=== PATIENT | female | born 1955 | race Caucasian/White ===

== ENCOUNTER → 2019-02-14 | Day surgery (SDC) | payer BC ==
[~2019-02-14] MED LIST: BIOTIN2500 MCG; D3 DOTS2000 UNIT; FENTANYL CITRATE/PF 100MCG/2 ML INJ ONE; LEXAPRO10 MG PO; MIDAZOLAM HCL 2 MG/2 ML VIAL ONE; OR PHACO EYE KIT ONE; PREOP PHACO EYE KIT ONE; ZANTAC150 MG
--- OUTSIDE RECORDS SUMMARY | 2019-02-14 10:32 | XMS REPORT ---
Author Author [facility] Address Unknown Phone Unavailable Care Team Providers Care [place] Name Role Phone OCTAVIO ZAMBRANO Unavailable Unavailable Problems This patient has no known problems. Allergies, Adverse Reactions, Alerts This patient has no known allergies or adverse reactions. Medications This patient has no known medications. Results Test Description Test Time Test Comments Text Results Atomic Results Result Comments MM, DIGITAL, MAMMO, SCREENING, BILATERAL INCLUDING CAD 2019-02-10 15:08:00 Diagnostic workup per radiologist?->YesReason for Exam:->screening #[id number] - MM, DIGITAL, MAMMO, SCREENING, BILATERAL INCLUDING CADBILATERAL DIGITAL SCREENING MAMMOGRAM WITH CAD: 02/10/2019Comparison is made to exam dated: 04/08/2016 mammogram - [facility]. There are scattered fibroglandular elements in both breasts that could obscure a lesion on mammography. Current study was also evaluated with a Computer Aided Detection (CAD) system. Benign appearing vascular calcifications are present in the right breast and benign appearing vascular calcifications and benign appearing calcifications are present in the left breast. Examination indicates an intramammary lymph node in both breasts. No significant masses, calcifications, or other findings are seen in either breast. IMPRESSION: BENIGNThere is no mammographic evidence of malignancy. A 1 year screening mammogram is recommended. Demarcus Haley M.D. pth/penrad:02/10/2019 15:08:15 Normal Exam Mammogram BI-RADS: 2 Benign [id number] Electr onically signed by: DEMARCUS HALEY M.D. on 02/10/2019 03:08 PM MR, MRA, BRAIN, WITH 2018-11-07 14:39:00 FINAL REPORT MRA brain with and without contrast 11/07/2018 2:38 PM CLINICAL HISTORY: strong family h/o aneurysm, please evaluate for cerebral aneurysm COMPARISON: None available TECHNIQUE: Three-dimensional [id number] and contrast-enhanced intracranial MRA was performed, from which maximal intensity projection 3-D reconstructions of the intracranial arterial vasculatures were created. FINDINGS: There is no vessel occlusion, stenosis, or aneurysm. IMPRESSION: Unremarkable intracranial MRA. Signed: Virgilio Carter Verified Date/Time: 11/07/2018 14:39:50 Reading Location: [facility] Radiology Reading Room -CREATININE 2018-11-07 14:03:00 POC-CREATININE (JEFF) (test [id number]=[id number]) 0.8 mg/dL 0.6-1.3 TESTED AT [address] [address] POC-EGFR (JEFF) (test wwdp=1879) 72 mL/min/1.73M2 RAD, CHEST, 2 [id number] 14:17:00PA and lateral Reason for Exam:->SOBFINAL REPORT Chest, PA and lateral. History: Shortness of breath. Comparison: None available. Discussion: The cardiomediastinal silhou ette and pulmonary vasculature are within normal limits. The lungs are clear wit hout evidence of consolidation or effusion. There are no acute osseous abnormal ities. The soft tissues are unremarkable. IMPRESSION: No acute cardiopulmonary abnormality. Signed: Gabriele Manneport Verified Date/Time: 06/01/2018 14 :17:50 Reading Location: [facility] Mammo Reading Room
--- OUTSIDE RECORDS SUMMARY | 2019-02-14 10:32 | XMS REPORT | Clinical Summary ---
Author Author BRANDIN [facility] Address Unknown Phone Unavailable Care Team Providers Care Individualized Education Plan Aide Name Role Phone George Mac MD PCP Allergies Comments Active Allergy Reactions Severity Noted Date Feels bad Bupropion Hcl 10/25/2015 Just allegric Tetanus Vaccines And 10/25/2015 Toxoid Medications End Date Status Medication Sig Dispensed Refills Start Date Active aspirin 81 MG EC tablet Take 81 mg by 0 mouth once . Active cholecalciferol, vitamin Take 5,000 0 D3, 5,000 unit Tab Units by mouth daily. Active esomeprazole (NEXIUM) 20 Take by 0 mg packet mouth. Active biotin 1 mg Cap Take by 0 mouth. Active escitalopram oxalate Take 1 tablet 90 tablet 1 (LEXAPRO) 20 MG tablet (20 mg total) 9 by mouth daily. Active busPIRone (BUSPAR) 7.5 MG TAKE 1 270 tablet 0 tablet TABLET(7.5 9 MG) BY MOUTH THREE TIMES DAILY 06/02/2018 Discontinued ESOMEPRAZOLE MAGNESIUM Take 1 0 (NEXIUM ORAL) capsule by mouth daily. 03/25/2018 Discontinued vitamin E 400 UNIT Take 400 0 capsule Units by mouth daily. 03/25/2018 Discontinued vitamin A 41224 UNIT Take 10,000 0 capsule Units by mouth daily. 06/20/2018 Discontinued escitalopram oxalate Take 1 tablet 30 tablet 5 (LEXAPRO) 20 MG tablet (20 mg total) 8 by mouth daily. 03/25/2018 Discontinued busPIRone (BUSPAR) 7.5 MG Take 1 tablet 60 tablet 0 tablet (7.5 mg 8 total) by mouth 3 (three) times daily as needed. 10/21/2018 Discontinued busPIRone (BUSPAR) 7.5 MG TAKE 1 90 tablet 0 tablet TABLET(7.5 8 MG) BY MOUTH THREE TIMES DAILY NEEDED 08/03/2018 Discontinued escitalopram oxalate TAKE 1 30 tablet 2 (LEXAPRO) 20 MG tablet TABLET(20 MG) 8 BY MOUTH DAILY 09/20/2018 Discontinued escitalopram oxalate TAKE 1 30 tablet 0 (LEXAPRO) 20 MG tablet TABLET(20 MG) 8 BY MOUTH DAILY 10/21/2018 Discontinued escitalopram oxalate Take 1 tablet 30 tablet 0 (LEXAPRO) 20 MG tablet (20 mg total) 8 by mouth daily. 01/06/2019 Discontinued busPIRone (BUSPAR) 7.5 MG Take 7.5 mg 0 tablet by mouth 3 (three) times daily. 12/04/2018 nitrofurantoin, Take 1 10 capsule 0 macrocrystal-monohydrate, capsule (100 9 (MACROBID) 100 MG capsule mg total) by mouth 2 (two) times daily for 5 days. 01/06/2019 Discontinued busPIRone (BUSPAR) 7.5 MG Take 1 tablet 30 tablet 2 tablet (7.5 mg 9 total) by mouth 3 (three) times daily. Active Problems No known active problems Encounters Care Team Description Date Type Specialty George Mac MD Screening mammogram, encounter for 02/10/2019 Hospital Encounter George Mac MD Annual physical exam (Primary Dx); Preop examination; Screening mammogram, encounter for; Screen for colon cancer; Screening exam for skin cancer 02/02/2019 Office Visit Internal Medicine George Mac MD Referral 01/23/2019 Telephone Internal Medicine George Mac MD 01/06/2019 Refill Internal Medicine George Mac MD 01/06/2019 Refill Internal Medicine George Mac MD Urinary Tract Infection 11/29/2018 Telephone Internal Medicine George Mac MD Physical after 11/28/2018 Telephone Internal Medicine George Mac MD MRI/MRA 11/15/2018 Telephone Internal Medicine George Mac MD Family history of stroke; Family history of aneurysm 11/07/2018 Hospital Radiology Encounter George Mac MD MRA Order 11/07/2018 Telephone Internal Medicine George Mac MD referral 11/02/2018 Telephone Internal Medicine George Mac MD Family history of stroke (Primary Dx); Anxiety and depression; Transaminitis; Hyperlipidemia, unspecified hyperlipidemia type; Screening mammogram, encounter for; SOB (shortness of breath); Family history of aneurysm 10/21/2018 Office Visit Internal Medicine George Mac MD 09/20/2018 Refill Internal Medicine George Mac MD Medication Refill 09/16/2018 Telephone Internal Medicine George Mac MD Medication Refill 09/05/2018 Telephone Internal Medicine George Mac MD 08/03/2018 Refill Internal Medicine George Mac MD 06/20/2018 Refill Internal Medicine George Mac MD Age-related cataract of both eyes, unspecified age-related cataract type (Primary Dx); Family history of stroke; Spontaneous bruising; Dermoid cyst of scalp; Vaginal cyst 06/02/2018 Office Visit Internal Medicine George Mac MD SOB (shortness of breath) 06/01/2018 Hospital Radiology Encounter George Mac MD Medication Refill 04/07/2018 Telephone Internal Medicine George Mac MD Anxiety (Primary Dx); SOB (shortness of breath); Heart palpitations 03/25/2018 Office Visit Internal Medicine George Mac MD 03/25/2018 Refill Internal Medicine George Mac MD Referrals needed 03/22/2018 Telephone Internal Medicine after 02/13/2018 Immunizations Name Dates Previously Given Next Due DTaP 04/21/2013 SHINGLES VARICELLA 02/05/2015 (ZOSTAVAX) ZOSTER Family History Medical History Relation Name Comments Cancer Brother lung, breast Aneurysm Brother brain aneurysm Cancer Father lung Aneurysm Sister brain Other Son MVA, age 21 Drug abuse Son Relation Name Status Comments Brother Brother Father Mother Alive Sister Sister Alive Son Son Alive Son Alive Social History Date Tobacco Use Types Packs/Day Years Used Never Smoker Smokeless Tobacco: Never Used Alcohol Use Drinks/Week oz/Week Comments Yes 1 glass of wine Sex Assigned at Date Recorded Not on file Industry Job Start Date Occupation Not on file Not on file Not on file Travel End Travel History Travel Start No recent travel history available. Last Filed Vital Signs Time Taken Vital Sign Reading 02/02/2019 9:38 AM CDT Blood Pressure 99/60 02/02/2019 9:38 AM CDT Pulse 62 02/02/2019 9:38 AM CDT Temperature 36.8 C (98.3 F) 02/02/2019 9:38 AM CDT Respiratory Rate 10 02/02/2019 9:38 AM CDT Oxygen Saturation 98% - Inhaled Oxygen - Concentration 02/02/2019 9:38 AM CDT Weight 62.5 kg (137 lb 11.2 oz) 02/02/2019 9:38 AM CDT Height 165.1 cm (5' 5") 02/02/2019 9:38 AM CDT Body Mass Index 22.91 Plan of Treatment Care Team Description Date Type Specialty George Mac MD [address] [id number] 08/04/2019 Office Visit Internal Medicine Procedures Comments Procedure Name Priority Date/Time Associated Diagnosis MM DIGITAL MAMMO SCREEN Routine 02/10/2019 Screening mammogram, BILATERAL 1:40 PM CDT encounter for URINE CULTURE, ROUTINE Routine 02/02/2019 10:31 AM CDT MICROSCOPIC EXAMINATION Routine 02/02/2019 10:31 AM CDT UA/M W/RFLX CULTURE, ROUT AP Routine 02/02/2019 Annual physical exam 10:31 AM CDT PT/APTT Routine 02/02/2019 Preop examination 10:31 AM CDT TSH+FREE T4 Routine 02/02/2019 Annual physical exam 10:31 AM CDT VITAMIN D, 25-HYDROXY Routine 02/02/2019 Annual physical exam 10:31 AM CDT LIPID PANEL Routine 02/02/2019 Annual physical exam 10:31 AM CDT HGB A1C WITH EAG ESTIMA Routine 02/02/2019 Annual physical exam 10:31 AM CDT CBC W/PLT COUNT & AUTO Routine 02/02/2019 Annual physical exam DIFFERENTIAL 10:31 AM CDT COMPREHENSIVE METABOLIC Routine 02/02/2019 Annual physical exam PANEL 10:31 AM CDT ECG 12-LEAD Routine 02/02/2019 Preop examination 10:18 AM CDT MR MRA HEAD WITH AND Routine 11/07/2018 Family history of stroke WITHOUT CONTRAST 2:20 PM HULL INSPECTOR Family history of aneurysm POCT-CREATININE Routine 11/07/2018 1:58 PM HULL INSPECTOR LIPID PANEL Routine 10/21/2018 Hyperlipidemia, 10:41 AM HULL INSPECTOR unspecified hyperlipidemia type COMPREHENSIVE METABOLIC Routine 10/21/2018 Transaminitis PANEL 10:41 AM HULL INSPECTOR CBC W/PLT COUNT & AUTO Routine 06/03/2018 Spontaneous bruising DIFFERENTIAL 1:45 PM CDT XR CHEST 2 VIEWS Routine 06/01/2018 SOB (shortness of breath) 2:15 PM CDT after 02/13/2018 Results * MM DIGITAL MAMMO SCREEN BILATERAL (02/10/2019 1:40 PM CDT) Specimen Narrative Performed At RIS #[id number] - MM, DIGITAL, MAMMO, SCREENING, BILATERAL INCLUDING CAD BILATERAL DIGITAL SCREENING MAMMOGRAM WITH CAD: 02/10/2019 Comparison is made to exam dated:04/08/2016 mammogram - [facility]. There are scattered fibroglandular elements in both breasts that could obscure a lesion on mammography. Current study was also evaluated with a Computer Aided Detection (CAD) system. Benign appearing vascular calcifications are present in the right breast and benign appearing vascular calcifications and benign appearing calcifications are present in the left breast.Examination indicates an intramammary lymph node in both breasts. No significant masses, calcifications, or other findings are seen in either breast. IMPRESSION: BENIGN There is no mammographic evidence of malignancy. A 1 year screening mammogram is recommended. Demarcus Haley M.D. pth/penrad:02/10/2019 15:08:15 Normal Exam Mammogram BI-RADS: 2 Benign [id number] Procedure Note Interface, External Ris In - 02/10/2019 3:42 PM CDT #[id number] - MM, DIGITAL, MAMMO, SCREENING, BILATERAL INCLUDING CAD BILATERAL DIGITAL SCREENING MAMMOGRAM WITH CAD: 02/10/2019 Comparison is made to exam dated: 04/08/2016 mammogram - [facility], [facility]. There are scattered fibroglandular elements in both [...] findings are seen in either breast. IMPRESSION: BENIGN There is no mammographic evidence of malignancy. A 1 year screening mammogram is recommended. Demarcus Haley M.D. pth/penrad:02/10/2019 15:08:15 Normal Exam Mammogram BI-RADS: 2 Benign G0202 Performing Organization Address City/[facility]/[place] [facility] Cent[facility]ode Phone Number [facility] * MICROSCOPIC EXAMINATION (02/02/2019 10:31 AM CDT) WBC 6-10 (A) 0 - 5 /hpf [facility] RBC 0-2 0 - 2 /hpf [facility] 1 Epithelial Cells (non >10 (A) 0 - 10 /hpf [facility] 1 renal) Mucus Threads Present Not Estab. [facility] 1 Bacteria Few None seen/ [facility] 1 Specimen Narrative Performed At Performed at:01 - [facility] [address], [id number] Tour Manager: Ulices Panchal MD, Phone:[phone] Performing Organization Address City/[facility]/Zipcode Phone Number [facility] * URINE CULTURE, ROUTINE (02/02/2019 10:31 AM CDT) Urine Culture, Routine Final report [facility] 1 Result 1 Comment [facility] Comment: Mixed urogenital dylan Greater than 100,000 colony forming units per mL Specimen Narrative Performed At Performed at:[address] [place] [address] [id number] Tour Manager: Ulices Panchal MD, Phone:[phone] Performing Organization Address [facility] Phone Number [facility] * UA/M W/RFLX CULTURE, ROUT (02/02/2019 10:31 AM CDT) Specific [place], UA 1.023 1.005 - 1.03 [facility] 1 pH, UA 5.5 5.0 - 7.5 [facility] 1 Color, UA Yellow Yellow [facility] 1 Appearance Clear Clear [facility] 1 WBC Esterase 2+ (A) Negative [facility] 1 Protein, UA Negative Negative/T [facility] 1 Glucose, Urine Negative Negative [facility] 1 Ketones, UA Negative Negative [facility] 1 Blood, UA Negative Negative [facility] 1 Bilirubin, UA Negative Negative [facility] 1 Urobilinogen,Semi-Qn 0.2 0.2 - 1.0 mg/dL [facility] 1 Nitrite, UA Negative Negative [facility] 1 Microscopic Examination See below:Comment: Microscopic [facility] 1 was indicated and was performed. Urinalysis Reflex CommentComment: This specimen [facility] 1 has reflexed to a Urine Culture. Specimen Urine Narrative Performed At Performed at: [facility] [address] [place], [place] [id number] Tour Manager: Ulices Panchal MD, Phone:[phone] Performing Organization Address [facility] [place] [facility] Centercoin Phone Number [facility] * HGB A1C WITH EAG ESTIMA ([facility] Only) (02/02/2019 10:31 AM CDT) Hemoglobin A1c 5.4 4.8 - 5.6 % [facility] Comment: Prediabetes: 5.7 - 6.4 Diabetes: >6.4 Glycemic control for adults with diabetes: <7.0 Hemoglobin A1c 108 mg/dL [facility] 1 Specimen Narrative Performed At Performed at: [id number] Tour Manager: Ulices Panchal MD, Phone:[phone] Performing Organization Address [facility] Phone Number [facility] * TSH+FREE T4 ([facility] only) (02/02/2019 10:31 AM CDT) TSH 2.580 0.450 - 4.50 uIU/mL [facility] 1 T4,Free(Direct) 1.00 0.82 - 1.77 ng/dL [facility] Specimen Narrative Performed At Performed at: [id number] Tour Manager: Ulices Panchal MD, Phone:[phone] Performing Organization Address [facility] Phone Number [facility] * PT/PTT (02/02/2019 10:31 AM CDT) INR 1.0 0.8 - 1.2 [facility] Comment: Reference interval is for non-anticoagulated patients. Suggested INR therapeutic range for Vitamin K antagonist therapy: Standard Dose (moderate intensity therapeutic range): 2.0 - 3.0 Higher intensity therapeutic range 2.5 - 3.5 Prothrombin Time 10.1 9.1 - 12.0 sec [facility] 1 aPTT 28 24 - 33 sec [facility] Comment: This test has not been validated for monitoring unfractionated heparin therapy. aPTT-based therapeutic ranges for unfractionated heparin therapy have not been established. For general guidelines on Heparin monitoring, refer to the [facility] Directory of Services. Specimen Blood Narrative Performed At Performed at: [id number] Tour Manager: Ulices Panchal MD, Phone:[phone] Performing Organization Address [facility] Phone Number [facility] * Vitamin D, 25-Hydroxy (02/02/2019 10:31 AM CDT) Vitamin D, 25-Hydroxy 43.9 30.0 - 100.0 ng/mL [facility] Comment: Vitamin D deficiency has been defined by the [place] of Medicine and an Endocrine Society practice guideline as a level of serum 25-OH vitamin D less than 20 ng/mL (1,2). The Endocrine Society went on to further define vitamin D insufficiency as a level between 21 and 29 ng/mL (2). 1. IOM ([place] of Medicine). 2010. Dietary reference intakes for calcium and D. [place]: The National Academies Press. 2. Mele MF, Kadeem LAZO, Paula JACOBO, et al. Evaluation, treatment, and prevention of vitamin D deficiency: an Endocrine Society clinical practice guideline. JCEM. 2010; 96(7):1911-30. Specimen Blood Narrative Performed At Performed at:01 - [facility] [address], [id number] Tour Manager: Ulices Panchal MD, Phone:[phone] Performing Organization Address City/State/Zipcode Phone Number [facility] * CBC W/PLT COUNT & AUTO DIFFERENTIAL (02/02/2019 10:31 AM CDT) Only the most recent of 2 results within the time period is included. WBC 5.4 3.4 - 10.8 x10E3/uL [facility] RBC 4.80 3.77 - 5.28 x10E6/uL [facility] 1 Hemoglobin 14.1 11.1 - 15.9 g/dL [facility] 1 Hematocrit 43.8 34.0 - 46.6 % [facility] 1 MCV 91 79 - 97 fL [facility] 1 MCH 29.4 26.6 - 33.0 pg [facility] 1 MCHC 32.2 31.5 - 35.7 g/dL [facility] 1 RDW 13.8 12.3 - 15.4 % [facility] 1 Platelets 266 150 - 379 x10E3/uL [facility] % Neutros 40 Not Estab. % [facility] % Lymphs 49 Not Estab. % [facility] % Monos 7 Not Estab. % [facility] % Eos 4 Not Estab. % [facility] % Baso 0 Not Estab. % [facility] # Neutros 2.1 1.4 - 7.0 x10E3/uL [facility] # Lymphs 2.6 0.7 - 3.1 x10E3/uL [facility] # Monos 0.4 0.1 - 0.9 x10E3/uL [facility] # Eos 0.2 0.0 - 0.4 x10E3/uL [facility] 1 Baso (Absolute) 0.0 0.0 - 0.2 x10E3/uL [facility] % Immature Grans 0 Not Estab. % [facility] # Immature Grans 0.0 0.0 - 0.1 x10E3/uL [facility] 1 Specimen Blood Narrative Performed At Performed at: - [facility] [address], [id number] Tour Manager: Ulices Panchal MD, Phone:[phone] Performing Organization Address [facility] Phone Number [facility] * Lipid panel (02/02/2019 10:31 AM CDT) Only the most recent of 2 results within the time period is included. Cholesterol, Total 238 (H) 100 - 199 mg/dL [facility] Triglycerides 159 (H) 0 - 149 mg/dL [facility] 1 HDL Cholesterol 61 >39 mg/dL [facility] 1 VLDL Cholesterol Jonathan 32 5 - 40 mg/dL [facility] 1 LDL Cholesterol Calc 145 (H) 0 - 99 mg/dL [facility] 1 LDL/HDL Ratio 2.4 0.0 - 3.2 ratio [facility] Comment: LDL/HDL Ratio Me nWomen 1/2 Avg.Risk1.01.5 Avg.Risk3.6 3.2 2X Avg.Risk6.25.0 3X Avg.Risk8.06.1 Specimen Blood Narrative Performed At Performed at: [facility] [address], [id number] Tour Manager: Ulices Panchal MD, Phone:[phone] Performing Organization Address [facility] [place] [facility]coin Phone Number [facility] * Comprehensive metabolic panel (02/02/2019 10:31 AM CDT) Only the most recent of 2 results within the time period is included. Glucose, Serum 95 65 - 99 mg/dL [facility] BUN 14 8 - 27 mg/dL [facility] 1 Creatinine, Serum 0.78 0.57 - 1.00 mg/dL [facility] 1 eGFR If NonAfricn Am 81 >59 mL/min/1.73 [facility] 1 eGFR If Africn Am 93 >59 mL/min/1.73 [facility] 1 BUN/Creatinine Ratio 18 12 - 28 [facility] 1 Sodium, Serum 144 134 - 144 mmol/L [facility] 1 Potassium, Serum 5.0 3.5 - 5.2 mmol/L [facility] 1 Chloride, Serum 106 96 - 106 mmol/L [facility] 1 Carbon Dioxide, Total 25 20 - 29 mmol/L [facility] 1 Calcium, Serum 9.7 8.7 - 10.3 mg/dL [facility] 1 Protein, Total, Serum 6.8 6.0 - 8.5 g/dL [facility] 1 Albumin, Serum 4.4 3.6 - 4.8 g/dL [facility] 1 Globulin, Total 2.4 1.5 - 4.5 g/dL [facility] A/G Ratio 1.8 1.2 - 2.2 [facility] 1 Bilirubin, Total 0.4 0.0 - 1.2 mg/dL [facility] 1 Alkaline Phosphatase, S 88 39 - 117 IU/L [facility] 1 AST (SGOT) 19 0 - 40 IU/L [facility] 1 ALT (SGPT) 16 0 - 32 IU/L [facility] 1 Specimen Blood Narrative Performed At Performed at: [facility] [address], [id number] Tour Manager: Ulices Panchal MD, Phone:[phone] Performing Organization Address City/State/[place] [facility] Centercoin Phone Number [facility] * ECG 12 lead (02/02/2019 10:18 AM CDT) Specimen Narrative Performed At See EKG * MRA head with and without contrast (11/07/2018 2:20 PM HULL INSPECTOR) Specimen Narrative Performed At FINAL REPORT [facility] MRA brain with and without contrast 11/07/2018 2:38 PM CLINICAL HISTORY: strong family h/o aneurysm, please evaluate for cerebral aneurysm COMPARISON:None available TECHNIQUE: Three-dimensional [id number]-ft-[id number] and contrast-enhanced intracranial MRA was performed, from which maximal intensity projection 3-D reconstructions of the intracranial arterial vasculatures were created. FINDINGS: There is no vessel occlusion, stenosis, or aneurysm. IMPRESSION: Unremarkable intracranial MRA. Signed: Virgilio Carter MD Report Verified Date/Time:11/07/2018 14:39:50 Reading Location: [facility] Radiology Reading Room Procedure Note Interface, External Ris In - 11/07/2018 2:42 PM HULL INSPECTOR FINAL REPORT MRA brain with and without contrast 11/07/2018 2:38 PM CLINICAL HISTORY: strong family h/o aneurysm, please evaluate for cerebral aneurysm COMPARISON: None available TECHNIQUE: Three-dimensional [id number] and contrast-enhanced intracranial MRA was performed, from which maximal intensity projection 3-D reconstructions of the intracranial arterial vasculatures were created. FINDINGS: There is no vessel occlusion, stenosis, or aneurysm. IMPRESSION: Unremarkable intracranial MRA. Signed: Virgilio [address] MD Report Verified Date/Time: 11/07/2018 14:39:50 Reading Location: [facility] Radiology Reading Room Performing Organization Address [facility] Phone Number [facility] * POC-Creatinine (11/07/2018 1:58 PM HULL INSPECTOR) POC-Creatinine 0.8Comment: TESTED AT [facility] 0.6 - 1.3 mg/dL [address] POC-EGFR 72 mL/min/1.73M2 [facility] Specimen Blood Performing Organization Address [facility]/[place] [facility] [place] [address] [facility] * XR chest 2 views (06/01/2018 2:15 PM CDT) Specimen Narrative Performed At FINAL REPORT [employer] Chest, PA and lateral. History: Shortness of breath. Comparison: None available. Discussion:The cardiomediastinal silhouette and pulmonary vasculature are within normal limits. The lungs are clear without evidence of consolidation or effusion.There are no acute osseous abnormalities. The soft tissues are unremarkable. IMPRESSION: No acute cardiopulmonary abnormality. Signed: Nando Mann MD Report Verified Date/Time:06/01/2018 14:17:50 Reading Location: [facility] Mamm Reading Room Procedure Note Interface, External Ris In - 06/01/2018 2:20 PM CDT FINAL REPORT Chest, PA and lateral. History: Shortness of breath. Comparison: None available. Discussion: The cardiomediastinal silhouette and pulmonary vasculature are within normal limits. The lungs are clear without evidence of consolidation or effusion. There are no acute osseous abnormalities. The soft tissues are unremarkable. IMPRESSION: No acute cardiopulmonary abnormality. Signed: Nando Mann MD Report Verified Date/Time: 06/01/2018 14:17:50 Reading Location: [facility] Mammo Reading Room Performing Organization Address City/State/Zipcode Phone Number RIS after 02/13/2018 Insurance Payer Benefit Subscriber ID Type Phone Address Plan / Group BLUE [employer] BCBS ADV xxxxxxxxxxxx [phone] [address] [place] [address] EXCHANGE
[2019-02-14 14:05] VITALS: BP 121/75
== END | disposition home or self-care (01) ==
LOC: OR 10:30
PROVIDERS: ATTEND Ophthalmology
DX: H25.11 Age-related nuclear cataract, right eye (principal); E78.5 Hyperlipidemia, unspecified; F41.9 Anxiety disorder, unspecified
CPT/HCPCS: 66984; J2250; V2632

== ENCOUNTER → 2019-02-21 | Day surgery (SDC) | payer BC ==
--- OUTSIDE RECORDS SUMMARY | 2019-02-21 10:22 | XMS REPORT | Clinical Summary ---
Author Author BRANDIN 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 03/25/2018 Discontinued vitamin A 88726 UNIT Take 10,000 0 capsule Units by [...] Description Date Type Specialty George Mac MD derm referral 02/20/2019 Telephone Internal Medicine George Mac MD Screening mammogram, encounter for [...] Referrals needed 03/22/2018 Telephone Internal Medicine after 02/20/2018 Immunizations Name Dates Previously Given Next Due [...] Description Date Type Specialty George Mac MD [address] [id number] 08/04/2019 Office Visit Internal Medicine Procedures Comments [...] history of stroke WITHOUT CONTRAST 2:20 PM [employer]OT AND ANKLE SURGEON Family history of aneurysm POCT-CREATININE Routine 11/07/2018 1:58 PM [employer]OT AND ANKLE SURGEON LIPID PANEL Routine 10/21/2018 Hyperlipidemia, 10:41 AM FOOT AND ANKLE SURGEON unspecified hyperlipidemia type COMPREHENSIVE METABOLIC Routine 10/21/2018 Transaminitis PANEL 10:41 AM FOOT AND ANKLE SURGEON CBC W/PLT COUNT & AUTO Routine 06/03/2018 Spontaneous bruising DIFFERENTIAL 1:45 PM CDT XR CHEST 2 VIEWS Routine 06/01/2018 SOB (shortness of breath) 2:15 PM CDT after 02/20/2018 Results * MM DIGITAL MAMMO SCREEN BILATERAL (02/10/2019 1:40 PM CDT) Specimen Narrative Performed At [facility] #[id number] - MM, DIGITAL, MAMMO, SCREENING, BILATERAL INCLUDING CAD BILATERAL DIGITAL SCREENING MAMMOGRAM WITH CAD: 02/10/2019 Comparison is made to exam dated:04/08/2016 mammogram - [facility]. There are scattered fibroglandular [...] Ris In - 02/10/2019 3:42 PM CDT #[id number] - MM, DIGITAL, MAMMO, SCREENING, BILATERAL INCLUDING CAD BILATERAL DIGITAL SCREENING MAMMOGRAM WITH CAD: 02/10/2019 Comparison is made to exam dated: 04/08/2016 mammogram - [facility]. There are scattered fibroglandular [...] BI-RADS: 2 Benign [id number] Performing Organization Address City/State/Zipcode Phone Number [facility] * MICROSCOPIC EXAMINATION (02/02/2019 10:31 AM CDT) WBC 6-10 (A) 0 - 5 /hpf [facility] 1 RBC 0-2 0 - 2 /hpf [facility] 1 Epithelial Cells (non >10 (A) 0 - 10 /hpf [facility] 1 renal) Mucus Threads Present Not Estab. [facility] 1 Bacteria Few None seen/ [facility] 1 Specimen Narrative Performed At Performed at:[facility] [address] [place], [place] [id number] Tank Car Reconditioner: Ulices Panchal MD, Phone:[phone] Performing Organization Address [facility] Phone Number [facility] * URINE CULTURE, ROUTINE (02/02/2019 10:31 AM CDT) Urine Culture, Routine Final report [facility] 1 Result 1 Comment [facility] 1 Comment: Mixed urogenital dylan Greater than 100,000 colony forming units per mL Specimen Narrative Performed At Performed at: [facility] [place], [id number] Tank Car Reconditioner: Ulices Panchal MD, Phone:[phone] Performing Organization Address [facility] Phone Number [facility] * UA/M W/RFLX CULTURE, ROUT (02/02/2019 10:31 AM CDT) Specific Damar, UA 1.023 1.005 - 1.03 [facility] 1 [...] Specimen Urine Narrative Performed At Performed at: [facility] [place], [id number] Tank Car Reconditioner: Ulices Panchal MD, Phone:[phone] Performing Organization Address [facility] Phone Number [facility] * HGB A1C WITH EAG ESTIMA ([facility] Only) (02/02/2019 10:31 AM CDT) Hemoglobin A1c 5.4 4.8 - 5.6 % [facility] 1 Comment: Prediabetes: 5.7 - 6.4 Diabetes: >6.4 Glycemic control for adults with diabetes: <7.0 Hemoglobin A1c 108 mg/dL [facility] 1 Specimen Narrative Performed At Performed at:[address] [place], [place] [id number] Tank Car Re[employer]er: Ulices Panchal MD, Phone:[phone] Performing Organization Address [facility] Phone Number [facility] * TSH+FREE T4 ([facility] only) (02/02/2019 10:31 AM CDT) TSH 2.580 0.450 - 4.50 uIU/mL [facility] 1 T4,Free(Direct) 1.00 0.82 - 1.77 ng/dL [facility] 1 Specimen Narrative Performed At Performed at:[address] [place], [place] [id number] [employer] Car Reconditioner: Ulices Panchal MD, Phone:[phone] Performing Organization Address [facility] Phone Number [facility] * PT/PTT (02/02/2019 10:31 AM [...] Services. Specimen Blood Narrative Performed At Performed at:[address] [place], [place] [id number] Tank Car Reconditioner: Ulices Panchal MD, Phone:[phone] Performing Organization Address [facility] Phone Number [facility] * Vitamin D, 25-Hydroxy (02/02/2019 10:31 AM CDT) Vitamin D, 25-Hydroxy 43.9 30.0 - 100.0 ng/mL [facility] 1 Comment: Vitamin D deficiency has been defined by the [place] of [employer] and an Endocrine Society practice guideline as a level of serum 25-OH vitamin D less than 20 ng/mL (1,2). The Endocrine Society went on to further define vitamin D insufficiency as a level between 21 and 29 ng/mL (2). 1. IOM ([place] of [employer]). 2010. Dietary reference intakes for calcium and D. [place]: The National Academies Press. 2. Mele MF, Kadeem LAZO, Paula JACOBO, et al. Evaluation, treatment, and prevention of vitamin D deficiency: an Endocrine Society clinical practice guideline. JCEM. 2010; 96(7):1911-30. Specimen Blood Narrative Performed At Performed at:01 - [facility] [address] [place], [id number] Tank Car Reconditioner: Ulices Panchal MD, Phone:[phone] Performing Organization Address City/State/Zipcode Phone Number [facility] 1 * CBC W/PLT COUNT & [...] Narrative Performed At Performed at: - [facility] [address] [place], [id number] Tank Car Reconditioner: Ulices Panchal MD, Phone:[phone] Performing Organization Address [facility] Phone Number [facility] * Lipid panel (02/02/2019 10:31 [...] Narrative Performed At Performed at: - [facility] [address] [place], [id number] Tank Car Reconditioner: Ulices Panchal MD, Phone:[phone] Performing Organization Address [facility] Phone Number [facility] * Comprehensive metabolic panel (02/02/2019 10:31 [...] Specimen Blood Narrative Performed At Performed at: [facility] [address] [place], [id number] Tank Car Reconditioner: Ulices Panchal MD, Phone:[phone] Performing Organization Address City/State[facility] Phone Number [facility] * ECG 12 lead (02/02/2019 10:18 AM CDT) Specimen Narrative Performed At See EKG * MRA head with and without contrast (11/07/2018 2:20 PM FOOT AND ANKLE SURGEON) Specimen Narrative Performed At FINAL REPORT [facility] MRA brain with and without contrast 11/07/2018 2:38 PM CLINICAL HISTORY: strong family h/o aneurysm, please evaluate for cerebral aneurysm COMPARISON:None available TECHNIQUE: Three-dimensional [id number] and contrast-enhanced intracranial MRA was performed, from which maximal intensity projection 3-D reconstructions of the intracranial arterial vasculatures were created. FINDINGS: There is no vessel occlusion, stenosis, or aneurysm. IMPRESSION: Unremarkable intracranial MRA. Signed: Virgilio Carter MD Report Verified Date/Time:11/07/2018 14:39:50 Reading Location: [facility] Radiology Reading Room Procedure Note Interface, External Ris In - 11/07/2018 2:42 PM FOOT AND ANKLE SURGEON FINAL REPORT MRA brain with and without contrast 11/07/2018 2:38 PM CLINICAL HISTORY: strong family h/o aneurysm, please evaluate for cerebral aneurysm COMPARISON: None available TECHNIQUE: Three-dimensional [id number]-[id number] and contrast-enhanced intracranial MRA was performed, from which maximal intensity projection 3-D reconstructions of the intracranial arterial vasculatures were created. FINDINGS: There is no vessel occlusion, stenosis, or aneurysm. IMPRESSION: Unremarkable intracranial MRA. Signed: Virgilio Carter MD Report Verified Date/Time: 11/07/2018 14:39:50 Reading Location: [facility] Radiology Reading Room Performing Organization Address [facility] Phone Number [facility] * POC-Creatinine (11/07/2018 1:58 PM FOOT AND ANKLE SURGEON) POC-Creatinine 0.8Comment: TESTED AT [facility] 0.6 - 1.3 mg/dL [address] POC-EGFR 72 mL/min/1.73M2 [facility] Specimen Blood Performing Organization Address [facility] [place] [address] [facility] * XR chest 2 views (06/01/2018 2:15 PM CDT) Specimen Narrative Performed At FINAL REPORT Shopsy Chest, PA and lateral. History: Shortness of breath. Comparison: None available. Discussion:The cardiomediastinal silhouette and pulmonary vasculature are within normal limits. The lungs are clear without evidence of consolidation or effusion.There are no acute osseous abnormalities. The soft tissues are unremarkable. IMPRESSION: No acute cardiopulmonary abnormality. Signed: Nando Mann MD Report Verified Date/Time:06/01/2018 14:17:50 Reading Location: [facility] Mamm Reading Room Procedure Note Interface, External [...] Report Verified Date/Time: 06/01/2018 14:17:50 Reading Location: [facility] Mammo Reading Room Performing Organization Address City/State/Zipcode Phone Number [facility] after 02/20/2018 Insurance Payer Benefit Subscriber ID Type Phone Address Plan / Group BLUE CROSS/[employer]UE [employer] BCBS ADV xxxxxxxxxxxx [phone] [address] [place] [address] EXCHANGE
[2019-02-21 15:30] VITALS: BP 120/67
== END | disposition home or self-care (01) ==
LOC: OR 10:19
PROVIDERS: ATTEND Ophthalmology
DX: H25.12 Age-related nuclear cataract, left eye (principal); K21.9 Gastro-esophageal reflux disease without esophagitis; R74.0 Nonspecific elevation of levels of transaminase and lactic acid dehydrogenase [LDH]; E78.5 Hyperlipidemia, unspecified; R06.02 Shortness of breath; F41.9 Anxiety disorder, unspecified; F32.9 Major depressive disorder, single episode, unspecified; Z79.82 Long term (current) use of aspirin; Z82.3 Family history of stroke
CPT/HCPCS: 66984; J2250; V2632